=== PATIENT | female | born 1980 | race African-American/Black ===

== ENCOUNTER 2018-11-15 20:30 | Emergency (ER) | payer OTHER ==
[~2018-11-15] VITALS: Ht 162.6 cm; Wt 74.4 kg
[2018-11-15 20:47] VITALS: BP 132/83; TEMP 98.1
== END 2018-11-15 23:13 | disposition home or self-care (01) ==
LOC: ED 20:30
DX: M77.31 Calcaneal spur, right foot (principal); M79.604 Pain in right leg
CPT/HCPCS: 99283

== ENCOUNTER 2020-02-04 07:53 | Emergency (ER) | payer OTHER ==
[~2020-02-04] VITALS: Ht 162.6 cm; Wt 81.6 kg
[2020-02-04 09:21] VITALS: BP 132/81; TEMP 98.1
== END 2020-02-04 09:22 | disposition home or self-care (01) ==
LOC: ED 07:53
DX: J32.8 Other chronic sinusitis (principal); R51 Headache
CPT/HCPCS: 96372; 99283; J1885; J2930

== ENCOUNTER 2021-07-06 17:27 | Emergency (ER) | payer OTHER ==
[~2021-07-06] VITALS: Ht 162.6 cm; Wt 90.3 kg
[2021-07-06 17:44] VITALS: BP 162/98; TEMP 98
== END 2021-07-06 18:24 | disposition home or self-care (01) ==
LOC: ED 17:27
DX: G44.209 Tension-type headache, unspecified, not intractable (principal)
CPT/HCPCS: 96372; 99283; J1885; J2405